=== PATIENT | female | born 1965 | race Caucasian/White ===

== ENCOUNTER 2018-07-31 09:56 | Outpatient (CLI) | payer OTHER ==
[2018-07-31 12:33] LABS: BASOPHILS % (AUTO) 0.6 %; EOSINOPHILS # (AUTO) 0.2 10^3/uL (0.0-0.7); EOSINOPHILS % (AUTO) 2.7 %; HGB - HEMOGLOBIN 13.8 g/dL (12.0-16.0); LYMPHOCYTES # (AUTO) 1.5 10^3/uL (1.5-3.5); LYMPHOCYTES % (AUTO) 24.7 %; MEAN CORPUSCULAR HGB CONC 33.6 g/dL (32.0-36.0); MEAN CORPUSCULAR VOLUME 89.2 fL (81.0-99.0); MEAN PLATELET VOLUME 7.8 fL (7.9-10.8); MONOCYTES # (AUTO) 0.4 10^3/uL (0.0-1.0); MONOCYTES % (AUTO) 6.7 %; NEUTROPHILS # (AUTO) 3.9 10^3/uL (1.5-6.6); NEUTROPHILS % (AUTO) 65.3 %; PLT - PLATELET COUNT 348 10^3/uL (130-450); RED BLOOD COUNT 4.61 10^6/uL (4.20-5.40); RED CELL DISTRIBUTION WIDTH 13.4 % (12.0-15.0); WHITE BLOOD COUNT 5.9 x10^3/uL (4.8-10.8)
[2018-07-31 13:11] LABS: ALBUMIN 4.2 g/dL (3.2-5.5); ALBUMIN/GLOBULIN RATIO 1.2 (1.0-2.2); ALKALINE PHOSPHATASE 70 IU/L (42-121); ALT ALANINE AMINOTRANSFERASE 35 IU/L (10-60); AST ASPARTATE AMINOTRANSFERASE 29 IU/L (10-42); BUN - BLOOD UREA NITROGEN 6 mg/dL (6-20); CALCIUM 9.9 mg/dL (8.5-10.3); CARBON DIOXIDE - CO2 28 mmol/L (21-32); CHLORIDE 102 mmol/L (101-111); CHOL/HDL RATIO 3.3 (<4.4); CHOLESTEROL 217 mg/dL; CREATININE 0.6 mg/dL (0.4-1.0); GFR - MDRD 105 (>89); GLUCOSE 106 mg/dL (70-100); HDL CHOLESTEROL 65 mg/dL; LDL CHOLESTEROL,CALCULATED 120 mg/dL; LDL/HDL RATIO 1.8 (<4.4); SODIUM 138 mmol/L (135-145); TOTAL PROTEIN 7.7 g/dL (6.7-8.2); VLDL CHOLESTEROL 32 mg/dL
== END 2018-07-31 23:59 | disposition home or self-care (01) ==
LOC: LAB.WCP 09:56
PROVIDERS: ATTEND Physician Assistant Medical
DX: Z00.00 Encounter for general adult medical examination without abnormal findings (principal)
CPT/HCPCS: 36415; 80053; 80061; 83721; 84443; 85025

== ENCOUNTER 2023-07-01 11:13 | Outpatient (CLI) | payer OTHER ==
[2023-07-01 18:19] LABS: ALBUMIN 4.5 g/dL (3.2-5.5); ALBUMIN/GLOBULIN RATIO 1.5 (1.0-2.2); ALKALINE PHOSPHATASE 79 IU/L (42-121); ALT ALANINE AMINOTRANSFERASE 17 IU/L (10-60); AST ASPARTATE AMINOTRANSFERASE 15 IU/L (10-42); BILIRUBIN,TOTAL 0.5 mg/dL (0.2-1.0); BUN - BLOOD UREA NITROGEN 8 mg/dL (6-20); CALCIUM 10.7 mg/dL (8.5-10.3); CARBON DIOXIDE - CO2 26 mmol/L (21-32); CHLORIDE 106 mmol/L (101-111); CHOL/HDL RATIO 3.6 (<4.4); CHOLESTEROL 200 mg/dL; CREATININE 0.6 mg/dL (0.6-1.3); GFR - MDRD 103 (>89); GLUCOSE 114 mg/dL (74-104); HDL CHOLESTEROL 56 mg/dL; LDL CHOLESTEROL,CALCULATED 115 mg/dL; LDL/HDL RATIO 2.1 (<4.4); POTASSIUM 4.2 mmol/L (3.5-4.5); SODIUM 139 mmol/L (135-145); TOTAL PROTEIN 7.5 g/dL (6.4-8.9); TRIGLYCERIDES 143 mg/dL (48-352); VLDL CHOLESTEROL 29 mg/dL
[2023-07-01 18:24] LABS: BASOPHILS % (AUTO) 0.5 %; EOSINOPHILS # (AUTO) 0.2 10^3/uL (0.0-0.7); EOSINOPHILS % (AUTO) 2.6 %; HCT - HEMATOCRIT 44.6 % (37.0-47.0); LYMPHOCYTES # (AUTO) 1.3 10^3/uL (1.5-3.5); LYMPHOCYTES % (AUTO) 23.5 %; MEAN CORPUSCULAR HEMOGLOBIN 29.4 pg (27.0-31.0); MEAN CORPUSCULAR HGB CONC 31.4 g/dL (32.0-36.0); MEAN CORPUSCULAR VOLUME 93.7 fL (81.0-99.0); MEAN PLATELET VOLUME 9.8 fL (7.9-10.8); MONOCYTES # (AUTO) 0.3 10^3/uL (0.0-1.0); MONOCYTES % (AUTO) 5.4 %; NEUTROPHILS # (AUTO) 3.9 10^3/uL (1.5-6.6); NEUTROPHILS % (AUTO) 67.6 %; PLT - PLATELET COUNT 346 10^3/uL (130-450); RED BLOOD COUNT 4.76 10^6/uL (4.20-5.40); WHITE BLOOD COUNT 5.7 x10^3/uL (4.8-10.8)
[2023-07-01 18:33] LABS: THYROID STIMULATING HORMONE 2.21 uIU/mL (0.34-5.60)
[2023-07-01 21:02] LABS: ESTIMATED AVERAGE GLUCOSE 120 mg/dL (70-100); HEMOGLOBIN A1c% 5.8 % (4.27-6.07)
== END 2023-07-01 11:14 | disposition home or self-care (01) ==
LOC: LAB.N 11:13
PROVIDERS: ATTEND Physician Assistant Medical
DX: Z00.00 Encounter for general adult medical examination without abnormal findings (principal); R73.01 Impaired fasting glucose; N93.9 Abnormal uterine and vaginal bleeding, unspecified; Z13.220 Encounter for screening for lipoid disorders; Z13.29 Encounter for screening for other suspected endocrine disorder
CPT/HCPCS: 36415; 80053; 80061; 83001; 83036; 83721; 84443; 85025

== ENCOUNTER 2023-08-27 10:56 | Outpatient (CLI) | payer OTHER ==
--- NOTE | 2023-08-28 12:30 | Ultrasound Report ---
PROCEDURE: Pelvic w/Transvaginal INDICATIONS: POST MENOPAUSAL BLEEDING TECHNIQUE: Real-time scanning was performed of the pelvic organs, with image documentation. Additional endovagi nal scanning was necessary due to incomplete visualization of the adnexal and endometrial structures by transabdominal scanning. COMPARISON: None. FINDINGS: Uterus: Uterus is anteverted and normal in size at 8.7 x 4.0 x 4.6 cm. The myometrium is homogeneou s. The endometrium measures 10 mm in combined thickness. Nabothian cysts are noted at the endocervi x. Ovaries: The right ovary measures 1.6 x 0.8 x 0.7 cm, with a calculated ovarian volume of 0.4 cc. T he left ovary measures 2.3 x 1.4 x 1.4 cm, with a calculated ovarian volume of 2.24 cc. The ovaries have a normal sonographic appearance. Less than 12 follicles can be seen in each ovary. No adnexal masses are seen. No cystic lesions measuring greater than 3 cm. Other: No pathologic free abdominal or pelvic fluid. IMPRESSION: 1. 10 mm endometrial thickness which is abnormal in a postmenopausal female. Endometrial biopsy recom mended to evaluate for neoplasm. Reviewed by: Vianey Deshpande MD on 08/28/2023 12:28 PM PDT Approved by: Vianey Deshpande MD on 08/28/2023 12:28 PM PDT Station ID: [id number]
== END 2023-08-27 10:57 | disposition home or self-care (01) ==
LOC: DI 10:56
PROVIDERS: ATTEND Physician Assistant
DX: N95.0 Postmenopausal bleeding (principal); R93.89 Abnormal findings on diagnostic imaging of other specified body structures

== ENCOUNTER 2023-09-01 07:13 | Day surgery (SDC) | payer OTHER ==
--- NOTE | 2023-09-01 06:58 | ANESTHESIA ---
Pre-Anesthesia VS, & Labs - Diagnosis positive cologuard - Procedure colonoscopy - NPO >8 hours Last Fluid Intake: am prep - Is Patient ?: No - Lab Results Lab results reviewed: Yes Home Medications and Allergies Home Medications: Ambulatory Orders Psyllium Husk (with Sugar) [Fiber Powder] 368 gm PO DAILY 08/31/23 Psyllium Husk (with Sugar) [Fiber Powder] 368 gm PO DAILY 08/31/23 Allergies/Adverse Reactions: Allergies Allergy/AdvReac Type Severity Reaction Status Date / Time cinnamon Allergy Intermediate Unknown Verified 08/31/23 13:38 Anes History & Medical History - Anesthetic History Anesthesia Complications: reports: No previous complications Family history of Anesthesia Complications: Denies Family history of Malignant Hyperthermia: Denies - Medical History Cardiovascular: reports: None Pulmonary: reports: None Gastrointestinal: reports: Chronic constipation Urinary: reports: Kidney stones Musculoskeletal: reports: Osteoarthritis, Chronic back pain Endocrine/Autoimmune: reports: None Skin: reports: Eczema - Surgical History General: reports: Cholecystectomy Eyes Ears Nose Throat (EENT): reports: Cataracts Exam General: Alert, Oriented x3, Cooperative Dental: WNL Mouth Openin Fingerbreadth Neck Mobility: Normal Mallampati classification: II Thyromental Distance: 4-6 cm Cardiovascular: Regular rate Neurological: Normal speech Mental/Cognitive Status: Alert/Oriented X3, Normal for patient Cognitive Status: Within normal limits Plan Anesthesia Type: Total IV Consent for Procedure(s) Verified and Reviewed: Yes Code Status: Attempt Resuscitation ASA classification: 2-Mild systemic disease Is this case an emergency?: No
[2023-09-01] MEDS: LACTATED RINGERS 1,000 ML IV ONE (07:44)
[2023-09-01] MEDS ORDERED: PROPOFOL 500 MG/50 ML 500 MG/50 ML VIAL ONE (08:23)
[2023-09-01] MEDS ORDERED: MIDAZOLAM 2 MG/2 ML VIAL ONE (08:37)
[2023-09-01] MEDS ORDERED: LIDOCAINE-MPF 2% 5 ML VIAL ONE (08:37)
[2023-09-01] MEDS ORDERED: PROPOFOL 200 MG/20 ML VIAL IVP ONE (09:37)
[2023-09-01] MEDS: LACTATED RINGERS 100 ML IV ONE (09:43)
[2023-09-01 10:28] VITALS: BP 125/71; O2SAT 98
--- NOTE | 2023-09-01 12:01 | ANESTHESIA POST OP EVALUATION ---
Anesthesia Post Eval - Post Anesthesia Eval Vitals: Last Vital Signs Temp 36.3 C L 09/01/23 09:43 Pulse 62 09/01/23 10:27 Resp 16 09/01/23 10:27 BP 125/71 09/01/23 10:27 Pulse Ox 98 09/01/23 10:27 O2 Flow Rate CV Function Including HR & BP: Stable Pain Control: Satisfactory Nausea & Vomiting: Negative Mental Status: Baseline Respiratory Status: Airway Patent Hydration Status: Satisfactory Anesthesia Complications: None
== END 2023-09-01 07:14 | disposition home or self-care (01) ==
LOC: SDS 07:13
PROVIDERS: ATTEND Surgery
PROC: 0DBL8ZX Excision of Transverse Colon, Via Natural or Artificial Opening Endoscopic, Diagnostic (ICD-10-PCS; 2023-09-01)
PROC: 0DBM8ZX Excision of Descending Colon, Via Natural or Artificial Opening Endoscopic, Diagnostic (ICD-10-PCS; principal; 2023-09-01 08:30)
DX: Z12.11 Encounter for screening for malignant neoplasm of colon (principal); D12.3 Benign neoplasm of transverse colon; D12.4 Benign neoplasm of descending colon; K57.30 Diverticulosis of large intestine without perforation or abscess without bleeding; R19.5 Other fecal abnormalities
CPT/HCPCS: 45380; 45385; J7120

== ENCOUNTER 2023-09-22 15:28 | Outpatient (CLI) | payer OTHER ==
[2023-09-22 17:51] LABS: URIC ACID 7.1 mg/dL (2.3-6.6)
[2023-09-23 08:11] LABS: VITAMIN D 25-HYDROXY 6.5 ng/mL (30.0-100.0)
[2023-09-23 20:08] LABS: CALCIUM IONIZED SERUM 5.8 mg/dL (4.5-5.6)
== END 2023-09-22 15:29 | disposition home or self-care (01) ==
LOC: LAB.N 15:28
PROVIDERS: ATTEND Physician Assistant
DX: E83.52 Hypercalcemia (principal); N20.0 Calculus of kidney
CPT/HCPCS: 36415; 82306; 82330; 82652; 83970; 84550

== ENCOUNTER 2023-09-27 08:00 | Outpatient (CLI) | payer OTHER ==
[2023-09-29 16:08] LABS: CALCIUM URINE 18.9 mg/dL (Not Estab.)
== END 2023-09-27 23:59 | disposition home or self-care (01) ==
LOC: LAB.R 08:00
PROVIDERS: ATTEND Physician Assistant
DX: E83.52 Hypercalcemia (principal); N20.0 Calculus of kidney
CPT/HCPCS: 81599; 82340

== ENCOUNTER 2023-11-11 09:30 | Outpatient (CLI) | payer OTHER ==
[2023-11-11 12:28] LABS: BASOPHILS % (AUTO) 0.2 %; EOSINOPHILS % (AUTO) 0.2 %; HCT - HEMATOCRIT 46.7 % (37.0-47.0); HGB - HEMOGLOBIN 14.6 g/dL (12.0-16.0); LYMPHOCYTES # (AUTO) 0.8 10^3/uL (1.5-3.5); LYMPHOCYTES % (AUTO) 5.9 %; MEAN CORPUSCULAR HGB CONC 31.3 g/dL (32.0-36.0); MEAN CORPUSCULAR VOLUME 92.7 fL (81.0-99.0); MEAN PLATELET VOLUME 9.2 fL (7.9-10.8); MONOCYTES # (AUTO) 0.4 10^3/uL (0.0-1.0); MONOCYTES % (AUTO) 2.6 %; NEUTROPHILS # (AUTO) 12.4 10^3/uL (1.5-6.6); NEUTROPHILS % (AUTO) 90.8 %; PLT - PLATELET COUNT 407 10^3/uL (130-450); RED BLOOD COUNT 5.04 10^6/uL (4.20-5.40); RED CELL DISTRIBUTION WIDTH 12.5 % (12.0-15.0); WHITE BLOOD COUNT 13.6 x10^3/uL (4.8-10.8)
[2023-11-11 12:48] LABS: ALBUMIN 4.8 g/dL (3.2-5.5); ALBUMIN/GLOBULIN RATIO 1.5 (1.0-2.2); BILIRUBIN,TOTAL 0.7 mg/dL (0.2-1.0); CALCIUM 11.7 mg/dL (8.5-10.3); CREATININE 0.6 mg/dL (0.6-1.3); TOTAL PROTEIN 7.9 g/dL (6.4-8.9)
== END 2023-11-11 09:45 | disposition home or self-care (01) ==
LOC: LAB.N 09:30
PROVIDERS: ATTEND Family Medicine
DX: R10.9 Unspecified abdominal pain (principal)
CPT/HCPCS: 36415; 80053; 83690; 85025

== ENCOUNTER 2023-11-11 10:15 | Outpatient (CLI) | payer OTHER ==
--- NOTE | 2023-11-11 13:59 | XRAY Report ---
PROCEDURE: Abdomen Acute INDICATIONS: ABDOMINAL PAIN TECHNIQUE: 2 views of the abdomen were acquired. COMPARISON: None. FINDINGS: Surgical changes and devices: None. Chest: Lungs are clear. Heart size is normal. No pleural effusions. No pneumoperitoneum. Bowel: No pneumoperitoneum. The bowel gas pattern is normal. Stool load within normal limits. Soft tissues: Calcification projects over the left renal pelvis measuring 1.4 cm. Known smaller renal stones are not appreciated. Bones: No suspicious bony abnormalities. IMPRESSION: No acute abdominal or chest pathology. Nonobstructive bowel gas pattern. Stable 1.4 cm stone within the left renal pelvis. Reviewed by: Mik Ramachandran MD on 11/11/2023 1:57 PM PDT Approved by: Mik Ramachandran MD on 11/11/2023 1:57 PM PDT Station ID: [id number]
== END 2023-11-11 10:30 | disposition home or self-care (01) ==
LOC: DI.N 10:15
PROVIDERS: ATTEND Family Medicine
DX: R10.9 Unspecified abdominal pain (principal); N20.0 Calculus of kidney

== ENCOUNTER 2023-11-11 16:37 | Emergency (ER) | payer OTHER ==
--- NOTE | 2023-11-11 17:05 | ED Physician Documentation ---
PD HPI ABD PAIN - Stated complaint Stated Complaint: ABD PX - Chief complaint Chief Complaint: Abd Pain - History obtained from History obtained from: Patient - Additional information Additional information: She has a history of parathyroid disease with hypercalcemia and remote cholecystectomy. She is seeing an ENT surgeon next month for the parathyroid disease. Yesterday after lunch she developed periumbilical pain and nausea and this morning had an episode of projectile vomiting. She feels like the pain is much better now and the pain is not most to the lower abdomen. She went to the walk-in clinics where labs were done, the white count was 13.6 and her calcium level was 11.7. She was referred here for further evaluation and treatment. Dr. Andino did not call ahead. But note made that she has not had migratory pain, her pain is much better now and has never had lower abdominal pain. PD PAST MEDICAL HISTORY - Past Medical History Past Medical History: Yes Cardiovascular: None Respiratory: None Endocrine/Autoimmune: None GI: Chronic constipation : Kidney stones HEENT: Other Psych: Anxiety, ADD/ADHD Musculoskeletal: Osteoarthritis, Chronic back pain Derm: Eczema - Past Surgical History Past Surgical History: Yes General: Cholecystectomy HEENT: Cataracts - Present Medications Home Medications: Ambulatory Orders Medication Instructions Recorded Confirmed Psyllium Husk (with Sugar) [Fiber 368 gm PO DAILY 08/31/23 11/11/23 Powder] HYDROcod/ACETAM 5/325 [[place] 5/325] 1 - 2 tab PO Q6H PRN #15 tablet 11/11/23 Ondansetron Odt [Zofran Odt] 4 mg TL Q6H PRN 11/11/23 11/11/23 - Allergies Allergies/Adverse Reactions: Allergies Allergy/AdvReac Type Severity Reaction Status Date / Time cinnamon Allergy Intermediate Unknown Verified 11/11/23 16:45 - Social History Does the pt smoke?: No Smoking Status: Never smoker Does the pt have substance abuse?: No - Immunizations Immunizations are current?: Yes PD ED PE NORMAL - Vitals Vital signs reviewed: Yes - General General: Alert and oriented X 3, No acute distress - Abdomen Abdomen: Normal bowel sounds, Soft, Non tender, Non distended, Other (She is completely nontender including to vigorous palpation in the right lower quadrant.) - Back Back: No CVA TTP, No spinal TTP - Neuro Neuro: Alert and oriented X 3 Results - Vitals Vitals: Vital Signs - 24 hr 11/11/23 11/11/23 11/11/23 16:43 18:56 20:04 Temperature 36.6 C 36.7 C Heart Rate 89 68 76 Respiratory 18 16 16 Rate Blood Pressure 143/82 H 136/69 H 132/76 H O2 Saturation 98 100 100 Oxygen O2 Source Room air - Labs Labs: Laboratory Tests 11/11/23 11/11/23 11/11/23 16:55 16:55 18:42 WBC 10.4 RBC 4.90 Hgb 14.3 Hct 45.4 MCV 92.7 MCH 29.2 MCHC 31.5 L RDW 12.6 Plt Count 368 MPV 8.8 Neut # (Auto) 7.9 H Lymph # (Auto) 1.9 Taney # (Auto) 0.5 Eos # (Auto) 0.1 Baso # (Auto) 0.0 Absolute Nucleated RBC 0.00 Nucleated RBC % 0.0 Sodium 139 Potassium 3.5 Chloride 103 Carbon Dioxide 29 Anion Gap 7.0 BUN 12 Creatinine 0.7 Estimated GFR (MDRD) 86 L Glucose 127 H Calcium 11.2 H Total Bilirubin 0.7 AST 11 ALT 14 Alkaline Phosphatase 74 Total Protein 6.9 Albumin 4.6 Globulin 2.3 Albumin/Globulin Ratio 2.0 Lipase 18 Urine Color DARK YELLOW Urine Clarity HAZY Urine pH 6.0 Ur Specific [place] >=1.030 H Urine Protein 100 H Urine Glucose (UA) NEGATIVE Urine Ketones 40 H Urine Occult Blood LARGE H Urine Nitrite NEGATIVE Urine Bilirubin SMALL H Urine Urobilinogen 0.2 (NORMAL) Ur Leukocyte Esterase NEGATIVE Urine RBC TNTC H Urine WBC 4-5 Ur Squamous Epith Cells RARE Squamous Urine Bacteria Few Urine Mucus Moderate Strands Ur Microscopic Review INDICATED Urine Culture Comments NOT INDICATED - Rads (name of study) CT a/p Relevant Findings:: Final report received (16mm L renal pelvis), EMP independent interpretation of test PD Medical Decision Making - ED course ED course: She presents with resolved abdominal pain and vomiting. Some concern in the clinic for appendicitis but she is really not tender in the right lower quadrant at all. Workup in the emergency department demonstrates an improved white count from earlier in the day. Chemistry is with mild hypercalcemia, better than earlier in the day, she has a bloody urine without signs of infection. CT imaging demonstrating a large stone in the left renal pelvis with probably signs of intermittent obstruction. It is a 16 mm stone and so very unlikely that this would pass without urologic intervention. And she was so advised. Did not need any pain medication here, but was amenable to the home-going prescription in case the pain got worse. Already has Zofran at home. Departure - Departure Disposition: Home, Self Care Clinical Impression: Renal colic Condition: Good Record reviewed to determine appropriate education?: Yes Instructions: ED Stone Renal W Colic Follow-Up: Chato Romo MD [Provider Admit Priv/Credential] - Prescriptions: HYDROcod/ACETAM 5/325 [[place] 5/325] 1 - 2 tab PO Q6H PRN #15 tablet PRN Reason: Pain Comments: You are seen today for abdominal pain, there was some concern for appendicitis, that said on the CT your appendix was normal. You have small stones on the right kidney but a very large stone in the left kidney that the radiologist thinks is intermittently blocking and therefore probably causing the abdominal pain and vomiting. It is a stone of the size (16 mm) that it is very unlikely to pass without intervention by a urologist. The name and number of the local urologist is on this form and I would call his office on Tuesday for the next available appointment. I sent a prescription for some hydrocodone to the [facility] in [place] and you can take that if pain is bad and if that is not strong enough please return for reevaluation. Minor tract instructions I am prescribing a short course of narcotic pain medication for you. These are potentially dangerous and addictive medications that should be used carefully. These medications may constipate you. Take an [id number] stool softener (docusate) twice daily with plenty of water while taking these medications. If you go 24 hours without a bowel movement, take [id number] miralax, per package instructions. Do not drink or drive while taking these medications. If you received narcotic or sedating medications while in the emergency department, do not drive for 24 hours. Store this medication in a safe, secure place and out of reach of children. It is a violation of federal law to give or sell this medication to another person or to use in a manner other than prescribed. The ED will not refill narcotic prescriptions, including prescriptions lost or stolen. To dispose of unwanted medications: 1. [employer] provides a drop box for medication in pill form only (no liquids) 8:00 am to 4:30 p.m. Tuesday-Tuesday in the lobby of the [facility] [place], [address] [place] [address]. Empty pills into ziplock bag before disposal. Call [phone] for information. 2.[employer] is a free service available to all [facility] residents. Go to [email or web address]/ Note that many narcotic pain relievers also contain Tylenol/acetaminophen. Please ensure that your total dose of acetaminophen from all sources does not exceed 3 g (3000 mg) per day. Forms: PCP List Discharge Date/Time: 11/11/23 20:04
[2023-11-11 17:06] LABS: BASOPHILS % (AUTO) 0.3 %; EOSINOPHILS # (AUTO) 0.1 10^3/uL (0.0-0.7); EOSINOPHILS % (AUTO) 0.8 %; HCT - HEMATOCRIT 45.4 % (37.0-47.0); HGB - HEMOGLOBIN 14.3 g/dL (12.0-16.0); LYMPHOCYTES # (AUTO) 1.9 10^3/uL (1.5-3.5); MEAN CORPUSCULAR HEMOGLOBIN 29.2 pg (27.0-31.0); MEAN CORPUSCULAR HGB CONC 31.5 g/dL (32.0-36.0); MEAN CORPUSCULAR VOLUME 92.7 fL (81.0-99.0); MEAN PLATELET VOLUME 8.8 fL (7.9-10.8); MONOCYTES # (AUTO) 0.5 10^3/uL (0.0-1.0); MONOCYTES % (AUTO) 4.7 %; NEUTROPHILS # (AUTO) 7.9 10^3/uL (1.5-6.6); NEUTROPHILS % (AUTO) 75.8 %; PLT - PLATELET COUNT 368 10^3/uL (130-450); RED CELL DISTRIBUTION WIDTH 12.6 % (12.0-15.0); WHITE BLOOD COUNT 10.4 x10^3/uL (4.8-10.8)
[2023-11-11] MEDS: SODIUM CHLORIDE 0.9% 1,000 ML IV STA (17:15)
[2023-11-11 17:22] LABS: ALBUMIN 4.6 g/dL (3.2-5.5); BILIRUBIN,TOTAL 0.7 mg/dL (0.2-1.0); CALCIUM 11.2 mg/dL (8.5-10.3); CREATININE 0.7 mg/dL (0.6-1.3); POTASSIUM 3.5 mmol/L (3.5-4.5); TOTAL PROTEIN 6.9 g/dL (6.4-8.9)
[2023-11-11] MEDS ORDERED: iohexoL-300 100 ML VIAL ONE (17:54)
[2023-11-11 18:53] LABS: BILIRUBIN,URINE SMALL (NEGATIVE); GLUCOSE, URINE (UA) NEGATIVE (NEGATIVE); KETONES,URINE (UA) 40 mg/dL (NEGATIVE); LEUKOCYTE ESTERASE, URINE NEGATIVE (NEGATIVE); NITRITE,URINE NEGATIVE (NEGATIVE); OCCULT BLOOD,URINE LARGE (NEGATIVE); PROTEIN,URINE 100 mg/dL (NEGATIVE); UROBILINOGEN,URINE 0.2 (NORMAL) E.U./dL (NORMAL)
[2023-11-11 18:54] LABS: CLARITY,URINE HAZY (CLEAR)
[2023-11-11] MEDS: iohexoL-300 100 ML VIAL IVP ONE (18:55)
[2023-11-11 18:59] VITALS: O2SAT 100
[2023-11-11 19:00] LABS: RBC,URINE TNTC /HPF (0-5)
[2023-11-11 19:01] LABS: BACTERIA,URINE Few /HPF (None Seen); MUCUS,URINE Moderate Strands; SQUAMOUS EPITHELIAL CELL,UR RARE Squamous (<= Few)
--- NOTE | 2023-11-11 19:26 | CT Report ---
PROCEDURE: Abdomen/Pelvis W INDICATIONS: iv only, abd pain question acute appendicitis. CONTRAST: 100ml omni 300 TECHNIQUE: After the administration of intravenous contrast, a CT scan of the abdomen and pelvis was performed. Images were recorded and evaluated at appropriate window settings. Reformats: coronal and sagittal. F or radiation dose reduction, the following was used: automated exposure control, adjustment of mA and /or kV according to patient size. COMPARISON: 08/09/2023 FINDINGS: Image quality: Diagnostic. Lower chest: Unremarkable. Liver: No solid mass. Gallbladder: Surgically absent. Biliary tree: No intrahepatic or extrahepatic dilation, accounting for age. Spleen: No splenomegaly. Pancreas: No pancreatic ductal dilation. Adrenals: No adrenal nodule. Kidneys and ureters: There is a large left renal pelvic stone measuring 16 mm in maximum diameter. Th ere is mild left hydronephrosis suggesting that this stone may be intermittently obstructing. It appe ars to be floating in the renal pelvis currently. Small nonobstructing right renal stones are noted. Previous 1 mm distal right ureteral stone has passed. Stomach, bowel and peritoneum: No gastric or small bowel dilation. No abnormal wall thickening. No pa thologic free fluid. Normal caliber gas containing appendix. Diverticulosis without evidence of acute diverticulitis. Lymph nodes: No central or retroperitoneal adenopathy. Vessels: No infrarenal aortic aneurysm. Patent portal vein. PELVIS Reproductive organs: Unremarkable. Bladder: No abnormal wall thickening, accounting for underdistention. Pelvic lymph nodes: No pelvic adenopathy by size criteria. Bones: No aggressive osseous abnormality. Other: No significant ventral or inguinal hernia. IMPRESSION: 1. No findings which would explain right lower quadrant pain. 2. Normal appendix. 3. A large stone is present in the left renal pelvis, potentially intermittently obstructing. There i s mild left hydronephrosis. 4. Small nonobstructing right renal stones.. Reviewed by: Clark Spencer MD on 11/11/2023 7:24 PM PDT Approved by: Clark Spencer MD on 11/11/2023 7:24 PM PDT Station ID: [id number]
[2023-11-11 20:12] VITALS: BP 132/76
== END 2023-11-11 20:04 | disposition home or self-care (01) ==
LOC: ED 16:37
DX: N13.2 Hydronephrosis with renal and ureteral calculous obstruction (principal); R10.9 Unspecified abdominal pain
CPT/HCPCS: 36415; 74022; 74177; 80053; 81001; 83690; 85025; 99284; Q9967; 81003; 87086

== ENCOUNTER 2023-11-29 14:08 | Outpatient (CLI) | payer OTHER ==
--- NOTE | 2023-11-29 20:32 | DEXA Report ---
PROCEDURE: Dexa Spine and/or Hip INDICATIONS: HYPERPARATHYROIDISM TECHNIQUE: Dual energy x-ray absorptiometry (DXA) was performed on a Cynvec System. Regions measur ed are the AP Spine, femoral neck, and if needed forearm. COMPARISON: None. FINDINGS: Lumbar Spine: Bone Mineral Density: 1.224 g/cm/cm,T score: 0.4. Left Femoral Neck: Bone Mineral Density: 1.096 g/cm/cm, T score: 0.4. Left Hip: Bone Mineral Density: 1.142 g/cm/cm,T score: 1.1. Left Forearm: Bone Mineral Density: 0.903 g/cm/cm, T score: 0.3. (T score greater or equal to -1.0: NORMAL) (T score from -1.1 to -2.4: OSTEOPENIA) (T score less than or equal to -2.5 to: OSTEOPOROSIS) Impression: By WHO criteria, this patient has normal bone density. Patients with diagnosis of osteoporosis or osteopenia should have regular bone mineral density assess ment. For those eligible for Medicare, routine testing is allowed once every 2 years. Testing frequ ency can be increased for patients who have rapidly progressing disease or for those who are receivin g medical therapy to restore bone mass. Reviewed by: Amari Colon MD on 11/29/2023 8:31 PM PDT Approved by: Amari Colon MD on 11/29/2023 8:31 PM PDT Station ID: [id number]
== END 2023-11-29 14:09 | disposition home or self-care (01) ==
LOC: DI 14:08
PROVIDERS: ATTEND Physician Assistant
DX: E21.0 Primary hyperparathyroidism (principal)

== ENCOUNTER 2023-12-26 07:15 | Day surgery (SDC) | payer OTHER ==
[2023-12-26] MEDS ORDERED: ceFAZolin 2 GM VIAL ONE (07:33)
[2023-12-26] MEDS: LACTATED RINGERS 1,000 ML IV ONE ×2 (07:36→10:14)
[2023-12-26] MEDS ORDERED: ATROPINE ABBOJECT 1 MG/10 ML SYRINGE IVP PRN (09:00)
[2023-12-26] MEDS ORDERED: METOCLOPRAMIDE 10 MG/2 ML VIAL IVP PRN (09:00)
[2023-12-26] MEDS ORDERED: MORPHINE 2 MG/ML CARPUJECT IVP PRN (09:00)
[2023-12-26] MEDS ORDERED: fentaNYL 100 MCG/2 ML VIAL IVP PRN (09:00)
[2023-12-26] MEDS ORDERED: ePHEDrine 50 MG/ML VIAL IVP PRN (09:00)
[2023-12-26] MEDS ORDERED: NALOXONE 0.4 MG/ML VIAL IVP PRN (09:00)
[2023-12-26] MEDS ORDERED: LACTATED RINGERS 1,000 ML IV SCH (09:00)
[2023-12-26] MEDS ORDERED: HYDROmorphone 0.5 MG/0.5 ML SYRINGE IVP PRN (09:00)
[2023-12-26] MEDS ORDERED: ONDANSETRON 4 MG/2 ML VIAL IVP PRN ×2 (09:00→10:24)
--- NOTE | 2023-12-26 09:00 | ANESTHESIA ---
Pre-Anesthesia VS, & Labs - Diagnosis l ureteral stone - Procedure cysto. ureteroscopy, laser litho Vital Signs: Temp Pulse Resp BP Pulse Ox O2 Flow Rate 36.0 C L 76 12 142/60 H 97 12/26/23 07:47 12/26/23 07:47 12/26/23 07:47 12/26/23 07:47 12/26/23 07:47 Height: 5 ft 3 in Weight (kg): 100.3 kg Body Mass Index: 39.2 BMI Classification: Obese - NPO >8 hours - Is Patient ?: No Home Medications and Allergies Home Medications: Ambulatory Orders Ibuprofen [Motrin] 600 mg PO Q6H PRN 12/19/23 Triamcinolone 0.1% Cream [Kenalog 0.1% Cream] 1 applic TOP BID PRN 12/19/23 Ondansetron Odt [Zofran Odt] 4 mg TL Q6H PRN 11/11/23 Ibuprofen [Motrin] 600 mg PO Q6H PRN 12/19/23 Triamcinolone 0.1% Cream [Kenalog 0.1% Cream] 1 applic TOP BID PRN 12/19/23 Allergies/Adverse Reactions: Allergies Allergy/AdvReac Type Severity Reaction Status Date / Time cinnamon Allergy Intermediate Unknown Verified 11/11/23 16:45 Sulfa (Sulfonamide Allergy severe Verified 12/19/23 13:51 Antibiotics) stomach cramping, diarrhea, nausea sulfur Allergy severe Uncoded 12/19/23 13:52 stomach cramping, diarrhea, nausea Anes History & Medical History - Anesthetic History Anesthesia Complications: reports: No previous complications - Medical History Cardiovascular: reports: None (denies, cp/sob/mi) Pulmonary: reports: None, Asthma (seasonal, no meds) Gastrointestinal: reports: Chronic constipation Urinary: reports: Kidney stones Musculoskeletal: reports: Osteoarthritis, Chronic back pain Endocrine/Autoimmune: reports: Other Skin: reports: Eczema Smoking Status: Never smoker Psychosocial: reports: No issues indicated - Surgical History General: reports: Cholecystectomy, Colonoscopy Eyes Ears Nose Throat (EENT): reports: Cataracts Results - EKG Results EKG Comparison: Reviewed EKG Exam General: Alert, Oriented x3 Dental: WNL Mouth Openin Fingerbreadth Neck Mobility: Normal Mallampati classification: II Thyromental Distance: 4-6 cm Respiratory: Lungs clear Cardiovascular: Regular rate Plan Anesthesia Type: General Consent for Procedure(s) Verified and Reviewed: Yes Code Status: Attempt Resuscitation ASA classification: 2-Mild systemic disease Is this case an emergency?: No
[2023-12-26] MEDS ORDERED: iohexoL-240 10 ML VIAL IVP ONE (09:03)
[2023-12-26] MEDS ORDERED: LIDOCAINE 2% URO-JET 5 ML SYRINGE UR ONE (09:03)
[2023-12-26] MEDS ORDERED: PROPOFOL 200 MG/20 ML VIAL IVP ONE (09:05)
[2023-12-26] MEDS ORDERED: MIDAZOLAM 2 MG/2 ML VIAL ONE (09:05)
[2023-12-26] MEDS ORDERED: LIDOCAINE-PF 2% 10 ML AMP SUBQ ONE (09:05)
[2023-12-26] MEDS: LIDOCAINE 2% URO-JET 5 ML SYRINGE UR ONE (09:41)
[2023-12-26] MEDS ORDERED: fentaNYL 100 MCG/2 ML VIAL ONE (09:43)
[2023-12-26] MEDS ORDERED: DEXAMETHASONE 4 MG/ML VIAL ONE (09:46)
[2023-12-26] MEDS ORDERED: ONDANSETRON 4 MG/2 ML VIAL ONE (09:46)
[2023-12-26] MEDS ORDERED: KETOROLAC 30 MG/ML VIAL ONE (09:55)
--- NOTE | 2023-12-26 10:30 | Discharge Plan ---
Discharge Plan Problem Reviewed?: Yes Disposition: Home, Self Care Condition: Good Prescriptions: Docusate Sodium 100Mg Capsule [Colace 100Mg Capsule] 100 mg PO DAILY #14 cap cephALEXin [Keflex] 500 mg PO ONCE #1 cap Diet: Regular Activity Restrictions: No Restrictions Shower Restrictions: No Driving Restrictions: No Instruction Topics: Stents Ureteral Additional Instructions or Follow Up instructions: You will be contacted for follow-up and cystoscopy and stent removal in the office in the next week or so. Please take antibiotic as prescribed on the way to that appointment No Smoking: If you smoke, Please STOP! Call for help. Follow-up with: Marietta Infante PA-C [Primary Care Provider] - Chato Romo MD [Provider Admit Priv/Credential] -
--- NOTE | 2023-12-26 10:33 | OPERATIVE REPORT ---
Operative Report - General Procedure Date: 12/26/23 Planned Procedure: Cystoscopy, left ureteroscopy, laser lithotripsy, stent Pre-Op Diagnosis: left kidney stone Procedure Performed: Cystoscopy, left ureteroscopy, laser lithotripsy, stent Post Op Diagnosis: left kidney stone - Procedure Note Primary Surgeon: Demetrius Anesthesia Provider: ZACH Macdonald Anesthesia Technique: General LMA Pathology: none Estimated Blood Loss (mL): 0 Findings: Large 16mm radioopaque stone, dusted Complications: none - Other Other Information/Narrative: After informed consent was obtained the patient was brought to the OR and laid in the supine position. The patient was anesthetized per anesthesia protocols and prepped and draped in usual sterile fashion in the dorsolithotomy position. A formal timeout was performed confirming the patient procedure and laterality. A 22 Yoruba cystoscope was advanced easily into urinary bladder bladder inspected and full and there were no masses, lesions or other concerns. Her left ureteral orifice was cannulated with a sensor wire and this was placed easily up into the kidney. Under fluoroscopic guidance. We could see that she had a large 16 mm radiopaque stone at the expected location of renal pelvis. We then placed a second sensor wire as well up to that position. A 12/14 sheath was placed which was 36 and a meters long. We could not get past the distal portion of the proximal ureter which is where we left the sheath. Using a flexible ureteroscope advanced up into the kidney and we could see that she had a large crystalline yellow appearing stone. Using a 200 m laser fiber at a power of 0.8 up to a power of 1.5 at a rate of 8 we dusted the stone to small pieces. After significant use of the laser we found no further radiopacities on fluoroscopy. We cannot see any stones of size that she had a lot of dust and debris in her kidney remaining of course. We cleared the ureter direct visualization and then placed a 6 Yoruba 22 cm stent with good curling of the kidney and good curling of the bladder. The bladder was emptied and Uro-Jet was placed. This concluded procedure the patient tolerated procedure well. She will follow-up in roughly 1 week's time for cystoscopy and stent removal. All counts were correct.
[2023-12-26] MEDS ORDERED: HYDROcod/ACETAM 5/325 MG TABLET ONE (10:57)
[2023-12-26] MEDS: HYDROcod/ACETAM 5/325 MG TABLET PO PRN (10:59)
[2023-12-26 11:37] VITALS: BP 134/84; O2SAT 99
--- NOTE | 2023-12-26 11:55 | ANESTHESIA POST OP EVALUATION ---
Anesthesia Post Eval - Post Anesthesia Eval Vitals: Last Vital Signs Temp 36.3 C L 12/26/23 11:15 Pulse 70 12/26/23 11:15 Resp 14 12/26/23 11:15 BP 134/84 H 12/26/23 11:15 Pulse Ox 99 12/26/23 11:15 O2 Flow Rate CV Function Including HR & BP: Stable Pain Control: Satisfactory Nausea & Vomiting: Negative Mental Status: Baseline Respiratory Status: Airway Patent Hydration Status: Satisfactory Anesthesia Complications: None
--- NOTE | 2023-12-26 13:13 | XRAY Report ---
PROCEDURE: OR C-Arm Procedure INDICATIONS: STENT PLACEMENT FLUORO TIME: 000.1 TECHNIQUE: Fluoroscopic images for a left ureteral stent placement. COMPARISON: None. FINDINGS: Fluoroscopic guidance for a left-sided nephroureteral stent placement. IMPRESSION: Fluoroscopic guidance for a left-sided nephroureteral stent placement. Reviewed by: Mik Ramachandran MD on 12/26/2023 1:11 PM PDT Approved by: Mik Ramachandran MD on 12/26/2023 1:11 PM PDT Station ID: [id number]
== END 2023-12-26 07:16 | disposition home or self-care (01) ==
LOC: SDS 07:15
PROVIDERS: ATTEND Urology
DX: N20.0 Calculus of kidney (principal); E66.9 Obesity, unspecified; Z68.39 Body mass index [BMI] 39.0-39.9, adult
CPT/HCPCS: 52356; A9270; C1758; C2617; J7120; Q9966

== ENCOUNTER 2024-02-10 10:42 | Outpatient (CLI) | payer OTHER ==
[2024-02-10 18:17] LABS: CALCIUM 11.1 mg/dL (8.5-10.3)
== END 2024-02-10 10:43 | disposition home or self-care (01) ==
LOC: LAB.N 10:42
PROVIDERS: ATTEND Otolaryngology
DX: E21.3 Hyperparathyroidism, unspecified (principal)
CPT/HCPCS: 36415; 82310; 83970